=== PATIENT | male | born 1945 | race Two or more races ===

== ENCOUNTER 2020-11-16 08:15 | Inpatient (IN) | payer OTHER ==
[~2020-11-16] VITALS: Ht 170.2 cm; Wt 81.2 kg
[2020-11-16] MEDS ORDERED: MEMANTINE HCL E14 MG PO (13:18)
[2020-11-16] MEDS ORDERED: PROTONIX40 MG PO (13:18)
[2020-11-16] MEDS ORDERED: [UNRECOGNIZED DRUG - OTHER] PO (13:19)
[2020-11-16] MEDS ORDERED: ESCITALOPRAM OX10 MG PO (13:21)
[2020-11-16] MEDS ORDERED: CRESTOR20 MG PO (13:21)
[2020-11-16] MEDS ORDERED: FAMOTIDINE40 MG PO (13:21)
[2020-11-16] MEDS ORDERED: CANDESARTAN CILE8 MG PO (13:21)
[2020-11-16] MEDS ORDERED: B12 ACTIVE1000 MCG PO (13:22)
[2020-11-16] MEDS ORDERED: VITAL-D RX TAB1 EACH PO (13:22)
[2020-11-16] MEDS ORDERED: ADULT LOW DOSE81 M1 PO (13:22)
[2020-11-16] MEDS ORDERED: FOLIC ACID0.8 M1 PO (13:22)
[2020-11-18] MEDS ORDERED: DICLOFENAC SODI75 MG (07:50)
[2020-11-18] MEDS ORDERED: FOLIC ACID1 MG (07:50)
[2020-11-18] MEDS ORDERED: JARDIANCE25 MG (07:50)
[2020-11-18] MEDS ORDERED: VITAMIN B-121000 MC4 PO (07:52)
[2020-12-11] MEDS ORDERED: INTEGRA F CAPS1 EACH PO (08:48)
[2020-12-11] MEDS ORDERED: QUESTRAN PACKET4 GM PO (08:48)
[2020-12-11] MEDS ORDERED: INTESTINEX680 M1 PO (08:49)
== END 2020-12-11 10:28 | disposition home or self-care (01) | DRG 330 ==
LOC: O/R 11-18 07:02 → SURH 11-18 08:15 → SURG 11-18 16:29
PROVIDERS: ADMIT Surgery; ATTEND Surgery
PROC: 0DBN4ZZ Excision of Sigmoid Colon, Percutaneous Endoscopic Approach (ICD-10-PCS; 2020-11-18)
PROC: 07BC4ZX Excision of Pelvis Lymphatic, Percutaneous Endoscopic Approach, Diagnostic (ICD-10-PCS; 2020-11-18)
PROC: 0TBB4ZX Excision of Bladder, Percutaneous Endoscopic Approach, Diagnostic (ICD-10-PCS; 2020-11-18)
PROC: 0DJD8ZZ Inspection of Lower Intestinal Tract, Via Natural or Artificial Opening Endoscopic (ICD-10-PCS; 2020-11-18)
PROC: 0DTP4ZZ Resection of Rectum, Percutaneous Endoscopic Approach (ICD-10-PCS; principal; 2020-11-18 09:00)
PROC: 02HV33Z Insertion of Infusion Device into Superior Vena Cava, Percutaneous Approach (ICD-10-PCS; 2020-11-23)
PROC: B24BZZZ Ultrasonography of Heart with Aorta (ICD-10-PCS; 2020-12-08)
DX: C18.7 Malignant neoplasm of sigmoid colon (principal); I47.1 Supraventricular tachycardia; K56.7 Ileus, unspecified; Z16.12 Extended spectrum beta lactamase (ESBL) resistance; K91.89 Other postprocedural complications and disorders of digestive system; K56.51 Intestinal adhesions [bands], with partial obstruction; G30.9 Alzheimer's disease, unspecified; F02.80 Dementia in other diseases classified elsewhere, unspecified severity, without behavioral disturbance, psychotic disturbance, mood disturbance, and anxiety; R33.8 Other retention of urine; N99.89 Other postprocedural complications and disorders of genitourinary system; F43.22 Adjustment disorder with anxiety; E11.65 Type 2 diabetes mellitus with hyperglycemia; I11.9 Hypertensive heart disease without heart failure; Z20.822 Contact with and (suspected) exposure to COVID-19; B96.22 Other specified Shiga toxin-producing Escherichia coli [E. coli] [STEC] as the cause of diseases classified elsewhere